=== PATIENT | female | born 1970 | race Caucasian/White ===

== ENCOUNTER 2017-08-13 23:37 | Emergency (ER) | payer OTHER, MEDICAID ==
[~2017-08-13] VITALS: Ht 177.8 cm; Wt 97.5 kg
[2017-08-13 23:56] VITALS: BP 131/54
--- NOTE | 2017-08-14 00:04 | NUR ---
TO LOBBY AMB, VS STABLE A/W FOR BED , FATMATA NOTED
--- NOTE | 2017-08-14 03:25 | NUR ---
PATIENT CALLED FOR BED NO ANSWER
--- NOTE | 2017-08-14 03:30 | NUR ---
CALLED FOR THE SECOND TIME , NO RESPONSE
--- NOTE | 2017-08-14 03:35 | NUR ---
CALLED FOR THE THIRD TIME NO RESPONSE, PATIENT LEFT WITHOUT BEING SEEN BY DR. CHILDRESS. NO FURTHER CARE PROVIDED FOR PATIENT.
--- NOTE | 2017-08-14 03:52 | NUR ---
PATIENT RETURNED BACK TO SEE THE ERMD.
--- NOTE | 2017-08-14 03:59 | NUR ---
Patient to [facility]. RN evaluating patient.
--- NOTE | 2017-08-14 04:00 | NUR ---
46/F CAME IN W C/O HEADACHE, NONPRODUCTIVE COUGH X 1 WEEK. DENIES HEMOPTYSIS, ALL LUNG SOUNDS CBTA AT THIS TIME, SATS 96% ON RA, 20RR EVEN AND UNLABORED. FATMATA GRIDER MADE AWARE PMH: CHF, HLD RX: CARVEDILOL, LASIX
[2017-08-14 04:50] VITALS: BP 123/68
--- NOTE | 2017-08-14 04:50 | NUR ---
Patient discharged with v/s stable. Written and verbal after care instructions given and explained. Patient alert, oriented and verbalized understanding of instructions. Ambulatory with steady gait. All questions addressed prior to discharge. ID band removed. Patient advised to follow up with PMD. Rx of Ibuprofen and Phenergan with Codeine syrup given. Patient educated on indication of medication including possible reaction and side effects. Opportunity to ask questions provided and answered.
== END 2017-08-14 04:50 | disposition home or self-care (01) ==
LOC: MED 23:37
DX: J06.9 Acute upper respiratory infection, unspecified (principal); I50.9 Heart failure, unspecified; E78.5 Hyperlipidemia, unspecified
CPT/HCPCS: 71010; 99283